=== PATIENT | male | born 1980 | race African-American/Black ===

== ENCOUNTER 2021-06-25 06:54 | Emergency (ER) | payer SELFPAY ==
[~2021-06-25] VITALS: Ht 175.3 cm; Wt 100.0 kg
[2021-06-25 07:30] VITALS: BP 135/79
[2021-06-25] MEDS ORDERED: SODIUM CHLORIDE 0.9% 1,000 ML IV ONE (08:15)
== END 2021-06-25 12:45 | disposition home or self-care (01) ==
LOC: ER 07:00
DX: R41.82 Altered mental status, unspecified (principal); F14.10 Cocaine abuse, uncomplicated; F12.10 Cannabis abuse, uncomplicated
CPT/HCPCS: 70450; 71045; 93005; 99285; J7030